=== PATIENT | male | born 1995 | race Two or more races ===

== ENCOUNTER 2019-12-20 17:57 | Emergency (ER) | payer BC ==
[~2019-12-20] VITALS: Ht 182.9 cm; Wt 61.2 kg
[2019-12-20 18:37] VITALS: BP 125/84
== END 2019-12-20 22:58 | disposition home or self-care (01) ==
LOC: ER 17:57
DX: S06.0X9A Concussion with loss of consciousness of unspecified duration, initial encounter (principal); W19.XXXA Unspecified fall, initial encounter; Y93.89 Activity, other specified; Y92.89 Other specified places as the place of occurrence of the external cause; Y99.8 Other external cause status
CPT/HCPCS: 70450